=== PATIENT | female | born 1950 | race Caucasian/White ===

== ENCOUNTER → 2017-04-06 | Outpatient (CLI) | payer BC ==
--- NOTE | 2017-04-06 14:25 | MAMMOGRAPHY REPORT ---
BILATERAL DIGITAL SCREENING MAMMOGRAM WITH CAD: 04/06/2017 CLINICAL HISTORY: Routine screening. Patient has no complaints. TECHNIQUE: Current study was also evaluated with a Computer Aided Detection (CAD) system. Bilateral CC and MLO views were obtained. COMPARISON: Comparison is made to exams dated: 04/05/2016 mammogram, 03/30/2015 mammogram, 03/26/2014 ma mmogram, 06/25/2012 mammogram, 06/20/2011 mammogram, and 06/15/2010 mammogram - [facility] nter. BREAST COMPOSITION: The tissue of both breasts is heterogeneously dense, which may obscure small mas ses. FINDINGS: No suspicious masses, calcifications, or areas of architectural distortion are noted in ei ther breast. There has been no significant interval change compared to prior exams. Bilateral benign -appearing calcifications are stable compared to multiple prior exams. Asymmetry seen within the lef t superior breast middle depth on the MLO view is similar to prior exams including the 2014 and 2009 exams, and felt to represent normal fibroglandular tissue. IMPRESSION: ACR BI-RADS CATEGORY 2: BENIGN There is no mammographic evidence of malignancy. A 1 year screening mammogram is recommended. The pa tient will receive written notification of the results. Approximately 10% of breast cancers are not detected with mammography. A negative mammographic report should not delay biopsy if a clinically suggestive mass is present. Gayle Tellez M.D. ah/:04/06/2017 10:21:19 Monitor Tech: Aliza Perez RT(R)(M), [facility] letter sent: Normal 1/2 BI-RADS Code: ACR BI-RADS Category 2: Benign
== END | disposition home or self-care (01) ==
LOC: C.MAMM 08:57
PROVIDERS: ATTEND Obstetrics & Gynecology
DX: Z12.31 Encounter for screening mammogram for malignant neoplasm of breast (principal)

== ENCOUNTER → 2018-02-25 | Outpatient (CLI) | payer BC ==
--- NOTE | 2018-02-25 11:57 | DIAGNOSTIC IMAGING REPORT ---
LEFT FIFTH TOE 3 VIEWS CLINICAL HISTORY: Left fifth toe pain COMPARISON: None. DISCUSSION: There is an age-indeterminate fracture involving the proximal phalanx of the fifth toe at the junction of the proximal and middle one third. Several images appear to demonstrate periosteal reaction. The fracture may be subacute. Please correlate with history of trauma. IMPRESSION: Age-indeterminate fracture involving the proximal phalanx of the fifth toe. Electronically signed by: Joseph Watt M.D. 02/25/2018 11:56 AM Dictated Date/Time: 02/25/2018 11:52 AM
--- NOTE | 2018-02-25 12:18 | DIAGNOSTIC IMAGING REPORT ---
L FOOT MIN 3 VIEWS ROUTINE CLINICAL HISTORY: Left foot pain COMPARISON: None. DISCUSSION: There is a fracture involving the proximal phalanx of the fifth toe at the junction of the proximal and middle one third. No additional fractures are visualized. There are no dislocations. IMPRESSION: Fracture involving the proximal phalanx of the fifth toe. Electronically signed by: Joseph Watt M.D. 02/25/2018 12:17 PM Dictated Date/Time: 02/25/2018 12:17 PM
== END | disposition home or self-care (01) ==
LOC: C.RADPV 11:17
PROVIDERS: ATTEND Family Medicine
DX: S92.512A Displaced fracture of proximal phalanx of left lesser toe(s), initial encounter for closed fracture (principal); X58.XXXA Exposure to other specified factors, initial encounter